=== PATIENT | male | born 1965 | race Caucasian/White ===

== ENCOUNTER 2017-08-07 16:11 | Emergency (ER) | payer MEDICAID ==
[~2017-08-07] VITALS: Ht 180.3 cm; Wt 86.0 kg
[2017-08-07 16:16] VITALS: BP 149/92
[2017-08-07] MEDS ORDERED: LIDOCAINE-MPF 1%, 5ML ONE (16:32)
== END 2017-08-07 18:45 | disposition home or self-care (01) ==
LOC: ED 18:10
DX: S51.811A Laceration without foreign body of right forearm, initial encounter (principal); F17.210 Nicotine dependence, cigarettes, uncomplicated; W25.XXXA Contact with sharp glass, initial encounter; Y93.89 Activity, other specified; Y92.89 Other specified places as the place of occurrence of the external cause; Y99.8 Other external cause status
CPT/HCPCS: 12032; 99284